=== PATIENT | male | born 1950 | race Caucasian/White ===

== ENCOUNTER 2017-04-27 12:16 | Inpatient (IN) | payer MEDICARE ==
[~2017-04-27] VITALS: Ht 177.8 cm; Wt 114.2 kg
[2017-04-27] MEDS ORDERED: ALBU0.63 NEB (12:42)
[2017-04-27] MEDS ORDERED: VARD10TA4 PO (12:42)
[2017-04-27] MEDS ORDERED: CARV6.2512 PO (12:42)
[2017-04-27] MEDS ORDERED: SPIR25TA3 PO (12:42)
[2017-04-27] MEDS ORDERED: HYDR25TA6 PO (12:42)
[2017-04-27] MEDS ORDERED: ATOR10TA9 PO (12:42)
[2017-04-27 12:52] LABS: HEMATOCRIT 44.2 % (39.2-51.8); HEMOGLOBIN 14.8 g/dL (13.7-18.0); WHITE BLOOD COUNT 4.9 x10^3/uL (3.4-10)
[2017-04-27] MEDS ORDERED: MORPHINE SULFATE 4 MG/ML, 1ML IVPush PRN (13:00)
[2017-04-27] MEDS ORDERED: ONDANSETRON 2MG/ML, 2ML IVPush ONE (13:00)
[2017-04-27] MEDS ORDERED: PLEASE ENTER WEIGHT MC SCH (13:00)
[2017-04-27] MEDS ORDERED: ASPIRIN 325 MG TABLET ONE (13:19)
[2017-04-27] MEDS ORDERED: ASPIRIN 325 MG TABLET PO PRN (13:30)
[2017-04-27] MEDS ORDERED: ASPIRIN 325 MG TABLET PO ONE ×2 (13:30)
[2017-04-27] MEDS ORDERED: OMNIPAQUE 350 MG/ML, 100ML BOTTLE ONE (14:10)
[2017-04-27] MEDS ORDERED: hydrALAzine 20 MG/ML, 1ML ONE (14:42)
[2017-04-27] MEDS ORDERED: hydrALAzine 20 MG/ML, 1ML IV ONE (15:00)
[2017-04-27] MEDS ORDERED: ACETAMINOPHEN 325 MG TABLET PO PRN (15:30)
[2017-04-27] MEDS ORDERED: ALBUTEROL SULFATE 2.5 MG/3 ML NEB PRN (15:30)
[2017-04-27] MEDS ORDERED: LABETALOL 5MG/ML, 20ML IVPush PRN (15:30)
[2017-04-27] MEDS ORDERED: VARDENAFIL PO PRN (15:30)
[2017-04-27] MEDS ORDERED: ENALAPRILAT 1.25 MG/ML, 2ML IVPush PRN (15:30)
[2017-04-27] MEDS ORDERED: morphine SULFATE 10 MG/ML, 1ML IVPush PRN (15:30)
[2017-04-27] MEDS ORDERED: DOCUSATE 100 MG CAPSULE PO PRN (15:30)
[2017-04-27] MEDS ORDERED: BISACODYL 10 MG SUPP PR PRN (15:30)
[2017-04-27] MEDS ORDERED: ONDANSETRON 2MG/ML, 2ML IVPush PRN (15:30)
[2017-04-27] MEDS ORDERED: HYDROcodone/APAP 5/325 TABLET PO PRN (15:30)
[2017-04-27 19:53] VITALS: BP 167/99
[2017-04-27] MEDS: CARVEDILOL 6.25 MG TABLET PO SCH (20:06)
[2017-04-27] MEDS: SODIUM CHLORIDE FLUSH 10ML SYR IVF SCH (20:08)
[2017-04-27] MEDS ORDERED: ATORVASTATIN 10 MG TABLET PO SCH (21:00)
[2017-04-27] MEDS: ENOXAPARIN 40 MG/0.4 ML SQ SCH (21:22)
[2017-04-28 00:49] VITALS: BP 132/78
[2017-04-28 03:55] VITALS: BP 135/85
[2017-04-28 05:39] LABS: BLOOD UREA NITROGEN 13 mg/dL (7-18)
[2017-04-28 08:50] VITALS: BP 141/91
[2017-04-28] MEDS: CARVEDILOL 6.25 MG TABLET PO SCH (09:08)
[2017-04-28] MEDS: SPIRONOLACTONE 25 MG TABLET PO SCH (09:08)
[2017-04-28] MEDS: SODIUM CHLORIDE FLUSH 10ML SYR IVF SCH ×2 (09:08→21:00)
[2017-04-28] MEDS: HYDROCHLOROTHIAZIDE 25 MG TABLET PO SCH (09:08)
[2017-04-28] MEDS ORDERED: ATOR20TA9 PO (12:00)
[2017-04-28] MEDS ORDERED: CARV12.543 PO (12:00)
[2017-04-28 12:26] VITALS: BP 144/89
[2017-04-28 14:30] VITALS: BP 131/73
[2017-04-28] MEDS ORDERED: LIDOCAINE 2%, 20ML ONE (15:43)
[2017-04-28] MEDS: ENOXAPARIN 40 MG/0.4 ML SQ SCH (16:58)
[2017-04-28] MEDS: CARVEDILOL 12.5 MG TABLET PO SCH (18:11)
[2017-04-28 19:44] VITALS: BP 102/68
[2017-04-28] MEDS: ATORVASTATIN 20 MG TABLET PO SCH (21:24)
[2017-04-29 01:32] VITALS: BP 99/68
[2017-04-29] MEDS: CARVEDILOL 12.5 MG TABLET PO SCH (06:00)
[2017-04-29 09:04] LABS: ASPARTATE AMINO TRANSFERASE 38 U/L (15-37); BLOOD UREA NITROGEN 12 mg/dL (7-18); HEMATOCRIT 32.5 % (39.2-51.8); HEMOGLOBIN 10.8 g/dL (13.7-18.0); WHITE BLOOD COUNT 4.2 x10^3/uL (3.4-10)
[2017-04-29 09:15] VITALS: BP 143/84
[2017-04-29 09:26] LABS: IS PT STATUS REG ER OR PRE ER? YES
[2017-04-29] MEDS: SPIRONOLACTONE 25 MG TABLET PO SCH (11:03)
[2017-04-29] MEDS: HYDROCHLOROTHIAZIDE 25 MG TABLET PO SCH (11:03)
[2017-04-29] MEDS: SODIUM CHLORIDE FLUSH 10ML SYR IVF SCH ×2 (11:04→20:51)
[2017-04-29] MEDS: POLYETHYLENE GLYCOL 17 GM PACKET PO PRN (11:08)
[2017-04-29 15:54] VITALS: BP 114/75
[2017-04-29] MEDS: ENOXAPARIN 40 MG/0.4 ML SQ SCH (16:24)
[2017-04-29] MEDS: POTASSIUM CHLORIDE 20 MEQ TAB.ER.PRT PO SCH (17:34)
[2017-04-29] MEDS ORDERED: CARVEDILOL 12.5 MG TABLET PO SCH (18:00)
[2017-04-29 19:40] VITALS: BP 98/61
[2017-04-29] MEDS: CARVEDILOL 3.125 MG TABLET PO SCH (19:49)
[2017-04-29] MEDS: ATORVASTATIN 20 MG TABLET PO SCH (20:50)
[2017-04-30 02:35] VITALS: BP 117/72
[2017-04-30 05:51] LABS: HEMATOCRIT 42.3 % (39.2-51.8); WHITE BLOOD COUNT 4.9 x10^3/uL (3.4-10)
[2017-04-30 06:06] LABS: ASPARTATE AMINO TRANSFERASE 49 U/L (15-37); BLOOD UREA NITROGEN 17 mg/dL (7-18)
[2017-04-30] MEDS: CARVEDILOL 3.125 MG TABLET PO SCH ×2 (06:24→17:14)
[2017-04-30 07:06] VITALS: BP 112/72
[2017-04-30] MEDS: SODIUM CHLORIDE FLUSH 10ML SYR IVF SCH ×2 (07:51→22:01)
[2017-04-30] MEDS: POTASSIUM CHLORIDE 20 MEQ TAB.ER.PRT PO SCH (07:51)
[2017-04-30] MEDS: SPIRONOLACTONE 25 MG TABLET PO SCH (07:51)
[2017-04-30 11:23] LABS: OCCBLD OBC PASS
[2017-04-30 13:56] VITALS: BP 120/69
[2017-04-30] MEDS: ENOXAPARIN 40 MG/0.4 ML SQ SCH (17:14)
[2017-04-30 21:58] VITALS: BP 127/80
[2017-04-30] MEDS: ATORVASTATIN 20 MG TABLET PO SCH (22:00)
[2017-05-01 04:23] VITALS: BP 132/87
[2017-05-01] MEDS: POLYETHYLENE GLYCOL 17 GM PACKET PO PRN (04:30)
[2017-05-01] MEDS: CARVEDILOL 3.125 MG TABLET PO SCH ×2 (05:33→16:34)
[2017-05-01 08:28] VITALS: BP 124/85
[2017-05-01] MEDS: SODIUM CHLORIDE FLUSH 10ML SYR IVF SCH (08:30)
[2017-05-01] MEDS: SPIRONOLACTONE 25 MG TABLET PO SCH (08:30)
[2017-05-01] MEDS ORDERED: ATOR40TA PO (10:32)
[2017-05-01] MEDS ORDERED: CARV3.1212 PO (10:32)
[2017-05-01] MEDS ORDERED: POLY17PO5 PO (10:32)
[2017-05-01] MEDS ORDERED: ASPI-650 PO (10:32)
[2017-05-01 14:19] VITALS: BP 108/66
[2017-05-01] MEDS ORDERED: ENOXAPARIN 40 MG/0.4 ML SQ SCH (16:00)
== END 2017-05-01 18:00 | DRG 41 ==
LOC: EDBD 12:16 → ED 17:25 → EDIP 17:30 → 4WST 19:10 → 5SO 04-29 08:59
PROVIDERS: ADMIT Internal Medicine; ATTEND Internal Medicine
PROC: 0JH632Z Insertion of Monitoring Device into Chest Subcutaneous Tissue and Fascia, Percutaneous Approach (ICD-10-PCS; principal; 2017-04-28)
PROC: 4A12X4Z Monitoring of Cardiac Electrical Activity, External Approach (ICD-10-PCS; 2017-04-28)
DX: I63.9 Cerebral infarction, unspecified (principal); E87.1 Hypo-osmolality and hyponatremia; I11.9 Hypertensive heart disease without heart failure; G45.0 Vertebro-basilar artery syndrome; R73.9 Hyperglycemia, unspecified; E78.5 Hyperlipidemia, unspecified; R20.9 Unspecified disturbances of skin sensation; E66.9 Obesity, unspecified; J45.909 Unspecified asthma, uncomplicated; K59.00 Constipation, unspecified; Z66 Do not resuscitate; Z82.49 Family history of ischemic heart disease and other diseases of the circulatory system; Z68.36 Body mass index [BMI] 36.0-36.9, adult; Z82.5 Family history of asthma and other chronic lower respiratory diseases; Z87.442 Personal history of urinary calculi; Z87.891 Personal history of nicotine dependence; Z91.14 Patient's other noncompliance with medication regimen; G90.8 Other disorders of autonomic nervous system
CPT/HCPCS: 33282; 36415; 70450; 70496; 70498; 70549; 70553; 71010; 80047; 80048; 80053; 80061; 82272; 82565; 83036; 84484; 85025; 85610; 85730; 93005; 93306; C1764; J1650; J2405; J3490; Q9967; J0360

== ENCOUNTER 2019-06-03 08:50 | Day surgery (SDC) | payer MEDICARE ==
[~2019-06-03] VITALS: Ht 177.8 cm; Wt 126.0 kg
[~2019-06-03 08:50] MED LIST: ALBU0.63 NEB; ASPI-650 PO; ATOR10TA9 PO; ATOR20TA37 PO; ATOR40TA PO; CARV12.543 PO; CARV3.1212 PO; CARV6.2512 PO; HYDR25TA6 PO; POLY17PO5 PO; SPIR25TA5 PO; VARD10TA4 PO
[2019-06-03] MEDS ORDERED: LIDOCAINE 2%, 20ML ONE (09:10)
== END 2019-06-03 10:50 | disposition home or self-care (01) ==
LOC: CACL 08:50
PROVIDERS: ATTEND Internal Medicine Cardiovascular Disease
DX: Z45.09 Encounter for adjustment and management of other cardiac device (principal); I48.0 Paroxysmal atrial fibrillation; I10 Essential (primary) hypertension; Z79.01 Long term (current) use of anticoagulants; Z86.73 Personal history of transient ischemic attack (TIA), and cerebral infarction without residual deficits
CPT/HCPCS: 33286

== ENCOUNTER → 2019-08-30 | Outpatient (CLI) | payer MEDICARE ==
[~2019-08-30] MED LIST changes: +REGADENOSON 0.4 MG/5 ML SYRINGE ONE
== END | disposition home or self-care (01) ==
LOC: CFH 12:18
PROVIDERS: ATTEND Internal Medicine Cardiovascular Disease
DX: R06.00 Dyspnea, unspecified (principal); I10 Essential (primary) hypertension; I63.9 Cerebral infarction, unspecified
CPT/HCPCS: 78452; 93017; A9502; J2785

== ENCOUNTER 2019-09-23 11:08 | Observation (INO) | payer MEDICARE ==
[2019-09-20 14:41] LABS: BASOPHILS # (AUTO) 0.02 x10^3/uL (0-0.1); MD NO; MONOCYTES # (AUTO) 0.38 x10^3/uL (0.2-0.8)
[2019-09-20 14:48] LABS: BASOPHILS % (AUTO) 0 % (0-1); EOSINOPHILS # (AUTO) 0.09 x10^3/uL (0-0.4); EOSINOPHILS % (AUTO) 1 % (1-7); LYMPHOCYTES % (AUTO) 18 % (22-44); MEAN CORPUSCULAR HEMOGLOBIN 27.2 pg (27.5-34.5); MEAN CORPUSCULAR HGB CONC 32.9 g/dL (33.2-36.2); MEAN CORPUSCULAR VOLUME 82.7 fL (81-97); MEAN PLATELET VOLUME 7.9 fL (7.4-10.4); MONOCYTES % (AUTO) 6 % (2-9); NEUTROPHILS # (AUTO) 4.94 x10^3/uL (1.8-6.8); NEUTROPHILS % (AUTO) 74 % (42-75); PLATELET COUNT 196 x10^3/uL (130-400); RED BLOOD COUNT 5.21 x10^6/uL (4.38-5.82); RED CELL DISTRIBUTION WIDTH 14.6 % (9.4-14.8)
[2019-09-20 15:05] LABS: ANION GAP 6 mmol/L (5-15); CALCIUM 8.7 mg/dL (8.5-10.1); CHLORIDE 107 mmol/L (98-107)
[2019-09-20 15:06] LABS: CREATININE 1.07 mg/dL (0.7-1.3)
[~2019-09-23] VITALS: Ht 177.8 cm; Wt 120.0 kg
[~2019-09-23 11:08] MED LIST changes: +ALBU8.5H8 INH; +ASPI325T17 PO; +ATOR80TA PO; +CARV12.52 PO; +FISH1CAP PO; +IBUP-1902 PO; +LISI5TAB7 PO; -REGADENOSON 0.4 MG/5 ML SYRINGE ONE; +RIVA20TA PO
[2019-09-23] MEDS ORDERED: SODIUM CHLORIDE 0.9% 1,000 ML IV SCH (11:42)
[2019-09-23] MEDS ORDERED: FENTANYL PF 100 MCG/2ML ONE (12:30)
[2019-09-23] MEDS ORDERED: LIDOCAINE 2%, 20ML ONE (12:30)
[2019-09-23] MEDS ORDERED: MIDAZOLAM 1 MG/ML, 5ML ONE (12:30)
[2019-09-23] MEDS: SODIUM CHLORIDE 0.9% 1,000 ML IV SCH ×2 (13:36→20:31)
[2019-09-23] MEDS ORDERED: IBUPROFEN 200 MG TABLET PO PRN (14:00)
[2019-09-23] MEDS ORDERED: ASPIRIN 325 MG TABLET PO PRN (14:00)
[2019-09-23] MEDS ORDERED: ALBUTEROL SULFATE 2.5 MG/3 ML NPPB PRN (14:00)
[2019-09-23 17:30] VITALS: BP 186/110
[2019-09-23] MEDS ORDERED: LABETALOL 5MG/ML, 20ML IVPush ONE (17:48)
[2019-09-23 18:31] VITALS: BP 159/86
[2019-09-23 20:27] VITALS: BP 137/85
[2019-09-23] MEDS: CARVEDILOL 12.5 MG TABLET PO SCH (20:28)
[2019-09-23] MEDS ORDERED: ATORVASTATIN 80 MG TABLET PO SCH (21:00)
[2019-09-24 00:47] VITALS: BP 178/116
[2019-09-24 01:30] VITALS: BP 155/98
[2019-09-24] MEDS: SODIUM CHLORIDE 0.9% 1,000 ML IV SCH (05:04)
[2019-09-24 07:29] VITALS: BP 178/96
[2019-09-24] MEDS ORDERED: RIVAROXABAN 20 MG TABLET PO SCH (08:00)
[2019-09-24] MEDS: CARVEDILOL 12.5 MG TABLET PO SCH (08:45)
[2019-09-24] MEDS ORDERED: LISINOPRIL 5 MG TABLET PO SCH (09:00)
== END 2019-09-24 11:40 | disposition home or self-care (01) ==
LOC: CACL 11:08 → ORIP 13:36 → 5SO 14:37 → DCLOUNGE 09-24 11:29
PROVIDERS: ADMIT Internal Medicine Cardiovascular Disease; ATTEND Internal Medicine Cardiovascular Disease
DX: I63.9 Cerebral infarction, unspecified (principal); I10 Essential (primary) hypertension; E78.5 Hyperlipidemia, unspecified; E66.9 Obesity, unspecified; I48.91 Unspecified atrial fibrillation; R93.1 Abnormal findings on diagnostic imaging of heart and coronary circulation; R06.00 Dyspnea, unspecified; Z79.899 Other long term (current) drug therapy
CPT/HCPCS: 36415; 80048; 85025; 93458; 93567; 96374; 99156; 99157; C1760; C1894; G0378; J2250; J3010; J3490; Q9967